=== PATIENT | female | born 2000 | race Caucasian/White ===

== ENCOUNTER 2019-05-10 04:48 | Emergency (ER) | payer OTHER ==
[~2019-05-10] VITALS: Ht 160 cm; Wt 65.9 kg
[2019-05-10] MEDS ORDERED: PRED20TA PO (06:06)
[2019-05-10 06:12] VITALS: BP 122/78
--- NOTE | 2019-05-10 11:57 | REP ---
Chest two views HISTORY: Cough Comparison: None The lungs are clear. The heart is normal in size. The pulmonary vasculature is normal in appearance. The bony structure is intact. IMPRESSION: No acute disease. Electronically Signed by Mckinley Kaur MD 05/10/2019 08:34 A
== END 2019-05-10 06:16 | disposition home or self-care (01) ==
LOC: M ED 04:48
DX: J06.9 Acute upper respiratory infection, unspecified (principal); Z88.0 Allergy status to penicillin; Z88.1 Allergy status to other antibiotic agents

== ENCOUNTER 2019-12-13 09:15 | Emergency (ER) | payer OTHER, SELFPAY ==
[~2019-12-13] VITALS: Ht 157.5 cm; Wt 65.5 kg
[~2019-12-13 09:15] MED LIST: CIPR-249 PO; ONDA4TAB6 PO; PRED20TA PO
[2019-12-13] MEDS ORDERED: TYLENOL (09:22)
[2019-12-13] MEDS ORDERED: ACETAMINOPHEN 500 MG TAB PO ONE (10:30)
[2019-12-13] MEDS ORDERED: METOCLOPRAMIDE INJ 10MG/2ML VIAL (J2765) IV ONE (10:30)
[2019-12-13] MEDS ORDERED: NS 1,000 ML IV ONE (10:45)
[2019-12-13] MEDS ORDERED: KEFL500C17 PO (12:54)
[2019-12-13 13:15] VITALS: BP 123/73
--- NOTE | 2019-12-13 13:49 | REP ---
FIRST TRIMESTER ULTRASOUND: Real-time sonographic evaluation of gravid uterus performed. There is a single living intrauterine gestation, estimated gestational age 11 weeks 3 days based on a crown-rump length of 46 mm. EDC 06/30/2020. heart rate is 169 beats per minute. There is no subchorionic hemorrhage. No maternal adnexal region abnormality is seen. Electronically Signed by Moris Farah MD 12/13/2019 06:06 P
== END 2019-12-13 13:17 | disposition home or self-care (01) ==
LOC: M ED 09:15
DX: O99.89 Other specified diseases and conditions complicating pregnancy, childbirth and the puerperium (principal); G43.909 Migraine, unspecified, not intractable, without status migrainosus; Z3A.11 11 weeks gestation of pregnancy; O99.511 Diseases of the respiratory system complicating pregnancy, first trimester; J45.909 Unspecified asthma, uncomplicated; Z88.0 Allergy status to penicillin; Z88.1 Allergy status to other antibiotic agents
CPT/HCPCS: 76801; 81001; 87086; 96361; 96374; 99284; J2765

== ENCOUNTER 2020-06-03 05:29 | Outpatient (CLI) | payer OTHER ==
[~2020-06-03] VITALS: Ht 160 cm; Wt 77.4 kg
[~2020-06-03 05:29] MED LIST changes: +KEFL500C17 PO; +TYLENOL
[2020-06-03 06:09] VITALS: BP 104/67
--- NOTE | 2020-06-03 07:25 | HPE ---
DATE OF ADMISSION: 06/03/2020 20-year-old, 1, para 0, last menstrual period (LMP) 07/14/2019, estimated date of confinement (EDC) 07/04/2020, at 35 and 4 weeks of gestation. Decreased movement times 12 hours and, with her Doppler, she could not hear the heart. No loss of fluid. No contractions. No vaginal bleeding. RISK FACTORS: She has asthma but is on no medication. LABS: O positive, HIV negative, hepatitis negative, RPR negative, rubella immune. Varicella immune. Pap normal. Urine was mixed simi. Gonorrhea and chlamydia are negative. 1-hour glucose 104. Blood pressure 104/67, respirations 20, pulse 112, and temperature is 96.9. Urine is 1.026, and pH is negative. PHYSICAL EXAMINATION: No distress. Symphysis fundus height is 35, vertex, occiput anterior (OA). Category 1 strip with accelerations, moderate variability. Baseline is normal. Amniotic fluid index (KEHINDE) in three quadrants totals 11.90; smallest pocket 2.93. tone and motion were noted, and there was some spontaneous breathing. Vertex presenting on ultrasound. PLAN: Is to discharge with instructions and keep her appointment at 35 weeks next week with [facility]. Patient was discharged undelivered.
== END 2020-06-03 06:25 | disposition home or self-care (01) ==
LOC: M LDO 05:29
PROVIDERS: ATTEND Obstetrics & Gynecology
DX: O36.8130 Decreased fetal movements, third trimester, not applicable or unspecified (principal); Z3A.35 35 weeks gestation of pregnancy
CPT/HCPCS: 59025; 76815; G0378; G0463

== ENCOUNTER 2020-06-30 05:06 | Inpatient (IN) | payer OTHER ==
[2020-07-01] MEDS ORDERED: LIDOCAINE 1% MDV 20ML VIAL As Ordered ONE (01:14)
[2020-07-01] MEDS ORDERED: DOCUSATE SODIUM 100 MG CAP As Ordered ONE (20:23)
[2020-07-01] MEDS ORDERED: IBUPROFEN 800 MG TAB As Ordered ONE (20:31)
[2020-07-02] MEDS ORDERED: DOCUSATE SODIUM 100 MG CAP As Ordered ONE (09:22)
[2020-07-02] MEDS ORDERED: IBUPROFEN 800 MG TAB As Ordered ONE (09:28)
[2020-07-03] MEDS ORDERED: IBUPROFEN 800 MG TAB As Ordered ONE (08:03)
[2020-07-03] MEDS ORDERED: DOCUSATE SODIUM 100 MG CAP As Ordered ONE (08:04)
[2020-08-01 11:25] LABS: HEMATOCRIT 33.2 % (36.0-47.0); HEMOGLOBIN 10.7 g/dl (12.0-15.5); MEAN CORPUSCULAR HEMOGLOBIN 27.4 pg (27.0-33.0); MEAN CORPUSCULAR HGB CONC 32.2 g/dl (32.0-36.5); MEAN CORPUSCULAR VOLUME 84.9 fl (80.0-96.0); PLATELET COUNT, AUTOMATED 202 10^3/uL (150-450); RED BLOOD COUNT 3.91 10^6/uL (4.00-5.40); WHITE BLOOD COUNT 13.9 10^3/uL (4.0-10.0)
== END 2020-07-03 10:20 | disposition home or self-care (01) | DRG 833 ==
LOC: M OBS 05:06
PROVIDERS: ADMIT Obstetrics & Gynecology; ATTEND Obstetrics & Gynecology
PROC: 10E0XZZ Delivery of Products of Conception, External Approach (ICD-10-PCS; principal; 2020-07-01)
PROC: 0HQ9XZZ Repair Perineum Skin, External Approach (ICD-10-PCS; 2020-07-01)
DX: O66.0 Obstructed labor due to shoulder dystocia (principal); O77.0 Labor and delivery complicated by meconium in amniotic fluid; O70.0 First degree perineal laceration during delivery; Z88.0 Allergy status to penicillin; Z88.1 Allergy status to other antibiotic agents; Z3A.39 39 weeks gestation of pregnancy

== ENCOUNTER 2020-08-01 20:30 | Emergency (ER) | payer OTHER ==
[~2020-08-01] VITALS: Ht 160 cm; Wt 65.3 kg
[2020-08-01] MEDS ORDERED: IBUP-1114 PO (20:43)
[2020-08-01] MEDS ORDERED: DOXY-350 PO (20:46)
[2020-08-01 22:30] VITALS: BP 97/58
== END 2020-08-02 00:01 | disposition left against medical advice (07) ==
LOC: M ED 20:30
DX: Z53.21 Procedure and treatment not carried out due to patient leaving prior to being seen by health care provider (principal)